=== PATIENT | male | born 1970 | race Caucasian/White ===

== ENCOUNTER 2022-03-28 13:46 | Observation (INO) | payer SELFPAY ==
[~2022-03-28] VITALS: Ht 190.5 cm; Wt 102.1 kg
[2022-03-28 14:31] LABS: BASOPHILS ABSOLUTE AUTO 0.04 K/mm3 (0.00-0.23); BASOPHILS PERCENT AUTO 1 % (0-2); EOSINOPHILS ABSOLUTE AUTO 0.07 K/mm3 (0.00-0.68); EOSINOPHILS PERCENT AUTO 1 % (0-6); Hematocrit 44.7 % (37.0-53.0); Hemoglobin 15.3 g/dL (13.5-17.5); IMMATURE GRAN ABSOLUTE AUTO 0.02 K/mm3 (0.00-0.10); IMMATURE GRAN PERCENT AUTO 0 % (0-1); LYMPHOCYTES ABSOLUTE AUTO 1.05 K/mm3 (0.84-5.20); LYMPHOCYTES PERCENT AUTO 12 % (21-46); MONOCYTES ABSOLUTE AUTO 0.47 K/mm3 (0.16-1.47); MONOCYTES PERCENT AUTO 6 % (4-13); Mean Corpuscular HGB 29.8 pg (26.0-34.0); Mean Corpuscular HGB Conc 34.2 g/dL (31.5-36.5); Mean Corpuscular Volume 87 fL (80-100); Mean Platelet Volume 9.4 fL (9.1-12.4); NEUTROPHILS ABSOLUTE AUTO 6.84 K/mm3 (1.96-9.15); NEUTROPHILS PERCENT AUTO 81 % (41-73); Platelet Count 291 K/mm3 (150-400); RDW Coefficient Variation 11.9 % (11.7-14.2); RDW Standard Deviation 38.4 fL (35.1-46.3); Red Blood Cell Count 5.13 M/mm3 (4.30-5.90); White Blood Cell Count 8.49 K/mm3 (4.00-11.30)
[2022-03-28 14:48] LABS: Albumin, Blood 3.7 g/dL (3.4-5.0); Bun/Creatinine Ratio 15.4 (12.0-20.0); Calcium, Blood 8.7 mg/dL (8.5-10.1); Creatinine, Blood 0.97 mg/dL (0.60-1.20); Globulin, Blood 3.8 g/dL (2.2-4.0); Potassium, Blood 3.7 mmol/L (3.5-5.5); Total Protein, Blood 7.5 g/dL (6.4-8.2)
--- NOTE | 2022-03-28 19:22 | NUR ---
SHIFT SUMMARY PTN TRANSFER FROM ER AT 1830 WITH C/O CHEST PAIN X2 DAYS TO L UPPER SHOULDER AND L SIDE. ONLY ONE OTHER EPISODE A WEEK OR SO AGO OF SAME. CHEST WITH ONLY A LITTLE DISCOMFORT AT THIS TIME. NO SRESS, NO SOB, NO OTHER SYMPTOMS NOTED. PTN ADMITTED FOR OBSERVATION WITH ELEVATED TROPONIN LEVELS.
--- NOTE | 2022-03-29 04:16 | NUR ---
SHIFT SUMMARY: PT A&OX4. ABLE TO MAKES NEEDS KNOWN. INDEPENDENT IN ROOM. NO COMPLAINTS OF SOB OR CHEST PAIN DURING THIS SHIFT. VSS. NPO AT IN FOR STRESS TEST IN A.M.
[2022-03-29 05:51] LABS: BASOPHILS ABSOLUTE AUTO 0.07 K/mm3 (0.00-0.23); BASOPHILS PERCENT AUTO 1 % (0-2); EOSINOPHILS ABSOLUTE AUTO 0.29 K/mm3 (0.00-0.68); EOSINOPHILS PERCENT AUTO 3 % (0-6); Hematocrit 44.9 % (37.0-53.0); Hemoglobin 15.5 g/dL (13.5-17.5); IMMATURE GRAN ABSOLUTE AUTO 0.02 K/mm3 (0.00-0.10); IMMATURE GRAN PERCENT AUTO 0 % (0-1); LYMPHOCYTES ABSOLUTE AUTO 2.26 K/mm3 (0.84-5.20); LYMPHOCYTES PERCENT AUTO 25 % (21-46); MONOCYTES ABSOLUTE AUTO 0.77 K/mm3 (0.16-1.47); MONOCYTES PERCENT AUTO 9 % (4-13); Mean Corpuscular HGB 29.9 pg (26.0-34.0); Mean Corpuscular HGB Conc 34.5 g/dL (31.5-36.5); Mean Corpuscular Volume 87 fL (80-100); Mean Platelet Volume 9.6 fL (9.1-12.4); NEUTROPHILS ABSOLUTE AUTO 5.64 K/mm3 (1.96-9.15); NEUTROPHILS PERCENT AUTO 62 % (41-73); Platelet Count 290 K/mm3 (150-400); RDW Coefficient Variation 11.9 % (11.7-14.2); RDW Standard Deviation 38.1 fL (35.1-46.3); Red Blood Cell Count 5.19 M/mm3 (4.30-5.90); White Blood Cell Count 9.05 K/mm3 (4.00-11.30)
[2022-03-29 06:20] LABS: Anion Gap 7 mmol/L (6-16); Blood Urea Nitrogen 20 mg/dL (8-24); CHOL/HDL RATIO 4.6; CO2, Blood 27 mmol/L (21-32); Calcium, Blood 8.9 mg/dL (8.5-10.1); Chloride, Blood 105 mmol/L (98-108); Cholesterol 212 mg/dL (50-200); Creatinine, Blood 1.05 mg/dL (0.60-1.20); Glomerular Filtration Rate 85 (60-); Glucose, Blood 80 mg/dL (70-99); HDL Cholesterol 46 mg/dL (>39); LDL/HDL RATIO 3.3; Low Density Lipoprotein Chol 151 mg/dL (0-110); Magnesium, Blood 2.5 mg/dL (1.6-2.4); Potassium, Blood 3.7 mmol/L (3.5-5.5); Sodium, Blood 139 mmol/L (136-145); Triglycerides 75 mg/dL (30-160); Very Low Density Lipoprot Chol 15 mg/dL (6-32)
[2022-03-29] MEDS ORDERED: NITR.4SL SL (14:31)
--- NOTE | 2022-03-29 15:49 | NUR ---
SHIFT SUMMARY PTN STAYED NPO AFTER MIDNIGHT IN ANTICIPATION OF STRESS TEST TODAY. THAT WAS COMPLETED AND MD ORDERS FOR D/C EARLY AFTERNOON POST RESULTS. D/C PAPERWORK WAS REVIEWED WITH THE PTN, TO INCLUDE RECOMMENDATION TO ESTABLISH PCP. INFORMATION WAS GIVEN TO [employer]. MEDICATION WAS FAXED INTO PTN PHARMACY. ALL QUESTIONS WERE ANSWERED. PTN WAS ESCORTED VIA WC TO HOSPITAL EXIT BY FAITH WRIGHT. PTN FATHER PRESENT.
== END 2022-03-29 15:15 | disposition home or self-care (01) ==
LOC: ER 13:46 → MEDS 13:47
PROVIDERS: Emergency Medicine; ADMIT Student in an Organized Health Care Education/Training Program
DX: R07.9 Chest pain, unspecified (principal); R77.8 Other specified abnormalities of plasma proteins
CPT/HCPCS: 36415; 78452; 80048; 80053; 80061; 83735; 83880; 84443; 84484; 85025; 93005; 93010; 93017; A9270; A9500; J0706; J2785

== ENCOUNTER → 2022-03-28 | Outpatient (CLI) | payer MEDICAID ==
[~2022-03-28] MED LIST: NITR.4SL SL
== END | disposition home or self-care (01) ==
DX: R07.89 Other chest pain (principal)

== ENCOUNTER 2022-04-14 08:34 | Day surgery (SDC) | payer OTHER ==
--- NOTE | 2022-04-14 09:49 | NUR ---
PT IN IMAGING FOR CTA PER DR DONG, VS STABLE, HR 50'S SINUS RAMESH, 20G IV STARTED R AC, CTA COMPLETED, VS STABLE, NO COMPLAINTS, WALKED PT DOWN TO HC FOR THE [address] DONG, IV DC'D INTACT
== END 2022-04-14 22:59 | disposition home or self-care (01) ==
LOC: MHTC 08:34 → CT 08:34
DX: I25.10 Atherosclerotic heart disease of native coronary artery without angina pectoris (principal); R42 Dizziness and giddiness
CPT/HCPCS: 75574; 93242; Q9967

== ENCOUNTER 2022-04-18 12:24 | Inpatient (IN) | payer OTHER ==
[~2022-04-18] VITALS: Ht 190.5 cm; Wt 98.6 kg
[2022-04-18 13:35] LABS: BASOPHILS ABSOLUTE AUTO 0.05 K/mm3 (0.00-0.23); BASOPHILS PERCENT AUTO 1 % (0-2); EOSINOPHILS ABSOLUTE AUTO 0.15 K/mm3 (0.00-0.68); EOSINOPHILS PERCENT AUTO 2 % (0-6); Hematocrit 48.5 % (37.0-53.0); Hemoglobin 16.6 g/dL (13.5-17.5); IMMATURE GRAN ABSOLUTE AUTO 0.03 K/mm3 (0.00-0.10); IMMATURE GRAN PERCENT AUTO 0 % (0-1); LYMPHOCYTES ABSOLUTE AUTO 1.14 K/mm3 (0.84-5.20); LYMPHOCYTES PERCENT AUTO 14 % (21-46); MONOCYTES ABSOLUTE AUTO 0.45 K/mm3 (0.16-1.47); MONOCYTES PERCENT AUTO 5 % (4-13); Mean Corpuscular HGB 29.8 pg (26.0-34.0); Mean Corpuscular HGB Conc 34.2 g/dL (31.5-36.5); Mean Corpuscular Volume 87 fL (80-100); NEUTROPHILS ABSOLUTE AUTO 6.65 K/mm3 (1.96-9.15); NEUTROPHILS PERCENT AUTO 78 % (41-73); Platelet Count 293 K/mm3 (150-400); Red Blood Cell Count 5.57 M/mm3 (4.30-5.90); White Blood Cell Count 8.47 K/mm3 (4.00-11.30)
[2022-04-18 13:44] LABS: Albumin, Blood 4.2 g/dL (3.4-5.0); Bun/Creatinine Ratio 13.8 (12.0-20.0); Calcium, Blood 9.2 mg/dL (8.5-10.1); Creatinine, Blood 1.09 mg/dL (0.60-1.20); Potassium, Blood 3.6 mmol/L (3.5-5.5); Total Protein, Blood 8.2 g/dL (6.4-8.2)
[2022-04-18] MEDS ORDERED: PLAVIX75 MG PO (16:13)
[2022-04-18] MEDS ORDERED: NITROGLYCERIN0.4 M3 SL (16:13)
[2022-04-18] MEDS ORDERED: ASPI81CH PO (16:14)
--- NOTE | 2022-04-18 18:45 | NUR ---
PATIENT ARRIVED FROM ED AT 1830 VIA W/C. A&O X 4, INDEPENDENT. STATES CHEST PAIN IS "MANAGEABLE", SAYS HE CAN BARELY FEEL IT. DR. MULLINS AT BEDSIDE.
[2022-04-18 19:35] LABS: Anti-Xa UFH, PHA Monitoring <0.10 IU/mL; International Normalized Ratio 1.07; Prothrombin Time Results 11.2 Sec (9.7-11.5)
[2022-04-18 22:05] LABS: Influenza A, PCR NEGATIVE (NEGATIVE); Influenza B, PCR NEGATIVE (NEGATIVE); Resp Syncytial Virus, PCR NEGATIVE (NEGATIVE); SARS-Cov-2 (COVID-19) PCR, MMC NEGATIVE (NEGATIVE)
--- NOTE | 2022-04-18 22:31 | NUR ---
PT ARRIVED TO FLOOR RIGHT BEFORE SHIFT CHANGE, 1829. THIS RN DID ADMISSION. ADMISSION COMPLETE, ASSESSMENT COMPLETE. PLACED ON TELE, SINUS RAMESH HR 65-45, WILL GIVE LOPRESSOR HR ALLOWS. HEPARIN GTT STARTED PER PHARMACY. PT DENIES ANY CURRENT CP, EDUCATED PT TO CALL IF ANY CP ARISES. DENIES SOB/DIZZINESS. SKIN INTACT. EDUCATED ON PLAN OF CARE. PT NPO FOR ANGIOGRAM AT 8AM, PT AWARE. CALL LIGHT IN REACH
[2022-04-19 02:06] LABS: Anion Gap 5 mmol/L (6-16); Blood Urea Nitrogen 16 mg/dL (8-24); Bun/Creatinine Ratio 14.2 (12.0-20.0); CHOL/HDL RATIO 2.3; CO2, Blood 30 mmol/L (21-32); Calcium, Blood 8.5 mg/dL (8.5-10.1); Chloride, Blood 107 mmol/L (98-108); Cholesterol 84 mg/dL (50-200); Creatinine, Blood 1.13 mg/dL (0.60-1.20); Glomerular Filtration Rate 78 (60-); Glucose, Blood 88 mg/dL (70-99); HDL Cholesterol 36 mg/dL (>39); LDL/HDL RATIO 1.1; Low Density Lipoprotein Chol 39 mg/dL (0-110); Potassium, Blood 3.7 mmol/L (3.5-5.5); Sodium, Blood 142 mmol/L (136-145); Triglycerides 44 mg/dL (30-160); Very Low Density Lipoprot Chol 8 mg/dL (6-32)
--- NOTE | 2022-04-19 04:29 | NUR ---
SHIFT SUMMARY NO CHANGES IN PT CONDITION SINCE BEGINING OF SHIFT AT ADMISSION. DENIES ANY CURRENT CP/SOB. HEPARIN GTT CONTINUES. INDEPENDENT IN ROOM. NPO FOR ANGIOGRAM. CALL LIGHT IN REACH, ABLE TO MAKE NEEDS KNOWN.
--- NOTE | 2022-04-19 07:40 | NUR ---
PATIENT OFF UNIT TO PSYCHODRAMATIST VIA W/C. PERSONAL BELONGINGS BAGGED AND PLACED AT ACC DESK.
[2022-04-19 15:01] LABS: BASOPHILS ABSOLUTE AUTO 0.05 K/mm3 (0.00-0.23); BASOPHILS PERCENT AUTO 1 % (0-2); EOSINOPHILS ABSOLUTE AUTO 0.26 K/mm3 (0.00-0.68); EOSINOPHILS PERCENT AUTO 3 % (0-6); Hematocrit 38.3 % (37.0-53.0); Hemoglobin 13.2 g/dL (13.5-17.5); IMMATURE GRAN ABSOLUTE AUTO 0.02 K/mm3 (0.00-0.10); IMMATURE GRAN PERCENT AUTO 0 % (0-1); LYMPHOCYTES ABSOLUTE AUTO 1.59 K/mm3 (0.84-5.20); LYMPHOCYTES PERCENT AUTO 20 % (21-46); MONOCYTES ABSOLUTE AUTO 0.51 K/mm3 (0.16-1.47); MONOCYTES PERCENT AUTO 6 % (4-13); Mean Corpuscular HGB 30.4 pg (26.0-34.0); Mean Corpuscular HGB Conc 34.5 g/dL (31.5-36.5); Mean Corpuscular Volume 88 fL (80-100); Mean Platelet Volume 10.2 fL (9.1-12.4); NEUTROPHILS ABSOLUTE AUTO 5.61 K/mm3 (1.96-9.15); NEUTROPHILS PERCENT AUTO 70 % (41-73); Platelet Count 237 K/mm3 (150-400); RDW Standard Deviation 39.1 fL (35.1-46.3); Red Blood Cell Count 4.34 M/mm3 (4.30-5.90); White Blood Cell Count 8.04 K/mm3 (4.00-11.30)
--- NOTE | 2022-04-19 18:04 | NUR ---
SHIFT SUMMARY: PATIENT CAME TO PCU 02 AROUND 1030 AM FROM CLINICAL SAFETY MANAGER, POST ANGIO. POST ANGIO VITALS COMPLETED. ALERT AND ORIENTED X4. NEURO WNL. ON ROOM AIR. TELE SHOWING SINUS RAMESH WITH HR 40-50'S. BP STABLE. PPP. DENIES CHEST PAIN/PRESSURE/PALPITATIONS. RIGHT RADIAL SITE POST ANGIO. UPON ARRIVAL FROM CLINICAL SAFETY MANAGER, PROXIMAL HEMATOMA FORMING AT TR BAND SITE. CLINICAL SAFETY MANAGER STAFF HELD PRESSURE AND REPOSITIONED TR BAND PLACEMENT. HEMATOMA REMAINS UNCHANGED, BRUISE STARTING TO FORM. VERY SMALL OOZE FROM PUNCTURE SITE THAT HAS ALSO REMAINED UNCHANGED. PEN DRAWN TO OUTLINE HEMATOMA. 1ML REMOVED PER TR BAND ORDERS 3 HOURS POST PLACEMENT. SEE TR BAND ORDERS FOR REMOVAL OF TR BAND STARTING AT 2115 THIS EVENING. POST ANGIO EKG DONE AND IN CHART. ADDITIONAL EKG TO BE DONE AT 0630 IN AM. NPO AT MIDNIGHT FOR ANGIO IN MORNING. PATIENT ATE LUNCH AND DINNER. HEPARIN, AGGRASTAT AND NS INFUSING PER EMAR. DR. MULLINS IN TO ASSESS SITE AROUND 1100. PARENTS AT BEDSIDE AND UPDATED. PATIENT AND FAMILY ORIENTED TO PCU. DISCUSSED SAFETY AND CALLING TO USE RESTROOM TO ASSIST WITH CORDS AND TUBING. UP TO BATHROOM SBA. DENIES OVERALL PAINS. WILL CONTINUE TO MONITOR AND REPORT OFF TO ONCOMING RN.
[2022-04-20 05:11] LABS: BASOPHILS ABSOLUTE AUTO 0.05 K/mm3 (0.00-0.23); BASOPHILS PERCENT AUTO 1 % (0-2); EOSINOPHILS PERCENT AUTO 4 % (0-6); Hematocrit 36.8 % (37.0-53.0); Hemoglobin 12.4 g/dL (13.5-17.5); IMMATURE GRAN ABSOLUTE AUTO 0.02 K/mm3 (0.00-0.10); IMMATURE GRAN PERCENT AUTO 0 % (0-1); LYMPHOCYTES ABSOLUTE AUTO 1.58 K/mm3 (0.84-5.20); LYMPHOCYTES PERCENT AUTO 22 % (21-46); MONOCYTES ABSOLUTE AUTO 0.52 K/mm3 (0.16-1.47); MONOCYTES PERCENT AUTO 7 % (4-13); Mean Corpuscular HGB Conc 33.7 g/dL (31.5-36.5); Mean Corpuscular Volume 89 fL (80-100); NEUTROPHILS ABSOLUTE AUTO 4.76 K/mm3 (1.96-9.15); NEUTROPHILS PERCENT AUTO 66 % (41-73); Platelet Count 225 K/mm3 (150-400); RDW Standard Deviation 38.9 fL (35.1-46.3); Red Blood Cell Count 4.14 M/mm3 (4.30-5.90); White Blood Cell Count 7.23 K/mm3 (4.00-11.30)
[2022-04-20 05:28] LABS: Albumin, Blood 2.9 g/dL (3.4-5.0); Anion Gap 4 mmol/L (6-16); Blood Urea Nitrogen 15 mg/dL (8-24); Bun/Creatinine Ratio 14.3 (12.0-20.0); CO2, Blood 27 mmol/L (21-32); Calcium, Blood 7.9 mg/dL (8.5-10.1); Chloride, Blood 113 mmol/L (98-108); Creatinine, Blood 1.05 mg/dL (0.60-1.20); Glomerular Filtration Rate 85 (60-); Glucose, Blood 80 mg/dL (70-99); Phosphorus, Blood 2.7 mg/dL (2.5-4.9); Potassium, Blood 3.8 mmol/L (3.5-5.5); Sodium, Blood 144 mmol/L (136-145)
--- NOTE | 2022-04-20 05:29 | NUR ---
END OF SHIFT REPORT DRIPS: HEPARIN 9 UNITS/KG/HR. AGGRASTAT 0.15 MCG/KG/MIN. NORMAL SALINE 125 ML/HR NEURO: WNL. PT DENIES NUMBNESS/TINGLING, HEADACHE OR VISION CHANGES. FULL SENSATION IN ALL FOUR EXTREMITIES. CARDIAC: SB. HR 40s-50s. BP AVERAGING 110s/60s. PT COMPLAINS OF CONSTANT DULL PRESSSURE IN CHEST OVERNIGHT RATED 2-3/10. PT REFUSED MEDICATIONS TO MANAGE, SAID IT WAS NOT BAD ENOUGH TO WARRANT. RESPIRATORY: WNL. RA. CLEAR BREATH SOUNDS APPRECIATED BILATERALLY. PT DENIES SOB/DYSPNEA. GI/: CONTINENT OF BOWEL AND BLADDER. NO BOWEL MOVEMENT OVERNIGHT. NORMOACTIVE BOWEL SOUNDS APPRECIATED AND ABDOMEN NONTENDER. PUTTING OUT ADEQUATE AMOUNTS OF CLEAR YELLOW URINE. MUSCULOSKELETAL: FULL STRENGTH. UP TO BATHROOM WITH VERBAL CUES ONLY. INTEGUMENTARY: RIGHT RADIAL ANGIO SITE. TR BAND REMOVED AROUND 0100. SCANT OOZING UNDER TEGADERM. REAPPLIED ARMBOARD TO PREVENT WRIST FROM FLEXING AND EXTENDING. SMALL HEMATOMA UNCHANGED FROM START OF SHIFT AND SITE IS SOFT. PLAN: STENT PLACEMENT TODAY
--- NOTE | 2022-04-20 08:08 | NUR ---
PATIENT TO SOLAR ENERGY SALES SPECIALIST AT THIS TIME
[2022-04-20] MEDS ORDERED: ATOR80 PO (17:46)
[2022-04-20] MEDS ORDERED: TICA90TA PO (17:46)
--- NOTE | 2022-04-20 18:50 | NUR ---
DISCHARGE NO ACUTE CHANGES. TR BANDS REMOVED AT 1520. BILATERAL RADIAL SITES WNL. DISCHARGE WNL. PATIENT AND PARENTS EDUCATED ON MEDICATIONS, FOLLOW UP APPOINTMENTS, RADIAL SITE CARE, POST ANGIO PRECAUTIONS, STENT CARD, CARDIAC REHAB, [facility] PRESCRIPTIONS FAXED AND WHEN TO CALL DOCTOR. FAMILY EXPRESSED UNDERSTANDING AND ABLE TO TEACH BACK. [place] COUPON CARD PROVIDED. STENT CARD SENT HOME ALONG WITH ALL DISCHARGE INSTRUCTIONS AND EDUCATION. IV'S REMOVED WNL. VITAL SIGNS ALL REMAIN STABLE. PATIENT LEFT UNIT VIA WHEELCHAIR WITH ALL PERSONAL BELONGINGS
== END 2022-04-20 18:45 | disposition home or self-care (01) | DRG 271 ==
LOC: ER 12:24 → MEDS 12:25 → PCU 04-19 10:23
PROVIDERS: Emergency Medicine; Internal Medicine Cardiovascular Disease; Student in an Organized Health Care Education/Training Program; ADMIT Family Medicine
PROC: X2CY3T7 Extirpation of Matter from Great Vessel using Computer-aided Mechanical Aspiration, Percutaneous Approach, New Technology Group 7 (ICD-10-PCS; 2022-04-19)
PROC: 4A023N7 Measurement of Cardiac Sampling and Pressure, Left Heart, Percutaneous Approach (ICD-10-PCS; 2022-04-19)
PROC: B211YZZ Fluoroscopy of Multiple Coronary Arteries using Other Contrast (ICD-10-PCS; 2022-04-19)
PROC: B240ZZ3 Ultrasonography of Single Coronary Artery, Intravascular (ICD-10-PCS; 2022-04-19)
PROC: B215YZZ Fluoroscopy of Left Heart using Other Contrast (ICD-10-PCS; 2022-04-19)
PROC: 027036Z Dilation of Coronary Artery, One Artery with Three Drug-eluting Intraluminal Devices, Percutaneous Approach (ICD-10-PCS; principal; 2022-04-20)
DX: I25.118 Atherosclerotic heart disease of native coronary artery with other forms of angina pectoris (principal); I23.7 Postinfarction angina; I24.9 Acute ischemic heart disease, unspecified; E78.5 Hyperlipidemia, unspecified; R00.1 Bradycardia, unspecified; F17.220 Nicotine dependence, chewing tobacco, uncomplicated; I25.2 Old myocardial infarction; Z20.822 Contact with and (suspected) exposure to COVID-19; Z79.899 Other long term (current) drug therapy; Z79.82 Long term (current) use of aspirin
CPT/HCPCS: 0241U; 36415; 71046; 76937; 80048; 80053; 80061; 80069; 83735; 84484; 85025; 85347; 85520; 85610; 85730; 92920; 92973; 93005; 93010; 93458; 96374; 96376; 99152; 99153; 99285-25; A9270; C1725; C1757; C1769; C1874; C1887; C1894; C9600; G0378; J0461; J1644; J2250; J3010; J3246; J7030; J7040; J7050; Q9967

== ENCOUNTER 2023-05-26 19:58 | Emergency (ER) | payer OTHER ==
[~2023-05-26] VITALS: Ht 190.5 cm; Wt 97.5 kg
[~2023-05-26 19:58] MED LIST changes: +ASPI81CH PO; +ATOR80 PO; +NITROGLYCERIN0.4 M3 SL; +PLAVIX75 MG PO; +TICA90TA PO
[2023-05-26 20:36] LABS: BASOPHILS ABSOLUTE AUTO 0.06 K/mm3 (0.00-0.23); BASOPHILS PERCENT AUTO 1 % (0-2); EOSINOPHILS ABSOLUTE AUTO 0.13 K/mm3 (0.00-0.68); EOSINOPHILS PERCENT AUTO 2 % (0-6); Hematocrit 45.2 % (37.0-53.0); Hemoglobin 15.6 g/dL (13.5-17.5); IMMATURE GRAN ABSOLUTE AUTO 0.01 K/mm3 (0.00-0.10); IMMATURE GRAN PERCENT AUTO 0 % (0-1); LYMPHOCYTES PERCENT AUTO 18 % (21-46); MONOCYTES ABSOLUTE AUTO 0.54 K/mm3 (0.16-1.47); MONOCYTES PERCENT AUTO 7 % (4-13); Mean Corpuscular HGB 30.6 pg (26.0-34.0); Mean Corpuscular HGB Conc 34.5 g/dL (31.5-36.5); Mean Corpuscular Volume 89 fL (80-100); Mean Platelet Volume 9.7 fL (9.1-12.4); NEUTROPHILS ABSOLUTE AUTO 5.93 K/mm3 (1.96-9.15); NEUTROPHILS PERCENT AUTO 73 % (41-73); Platelet Count 240 K/mm3 (150-400); RDW Coefficient Variation 12.1 % (11.7-14.2); RDW Standard Deviation 39.5 fL (35.1-46.3); White Blood Cell Count 8.17 K/mm3 (4.00-11.30)
[2023-05-26 20:56] LABS: Albumin, Blood 3.8 g/dL (3.4-5.0); Bilirubin, Total 0.7 mg/dL (0.1-1.0); Bun/Creatinine Ratio 20.6 (12.0-20.0); Calcium, Blood 8.9 mg/dL (8.5-10.1); Creatinine, Blood 0.78 mg/dL (0.60-1.20); Globulin, Blood 3.8 g/dL (2.2-4.0); Potassium, Blood 3.9 mmol/L (3.5-5.5); Total Protein, Blood 7.6 g/dL (6.4-8.2)
[2023-05-26 23:00] VITALS: BP 111/79
== END 2023-05-26 23:15 | disposition home or self-care (01) ==
LOC: ER 19:58
PROVIDERS: Student in an Organized Health Care Education/Training Program
DX: R07.89 Other chest pain (principal); I25.2 Old myocardial infarction; Z79.82 Long term (current) use of aspirin; Z79.899 Other long term (current) drug therapy
CPT/HCPCS: 71046; 80053; 84484; 85025; 93005; 93010; 99285-25

== ENCOUNTER 2023-06-01 09:42 | Emergency (ER) | payer OTHER ==
[~2023-06-01] VITALS: Ht 190.5 cm; Wt 99.8 kg
[2023-06-01 10:24] LABS: BASOPHILS ABSOLUTE AUTO 0.04 K/mm3 (0.00-0.23); BASOPHILS PERCENT AUTO 1 % (0-2); EOSINOPHILS PERCENT AUTO 2 % (0-6); Hematocrit 44.6 % (37.0-53.0); Hemoglobin 15.5 g/dL (13.5-17.5); IMMATURE GRAN ABSOLUTE AUTO 0.02 K/mm3 (0.00-0.10); IMMATURE GRAN PERCENT AUTO 0 % (0-1); LYMPHOCYTES ABSOLUTE AUTO 0.99 K/mm3 (0.84-5.20); LYMPHOCYTES PERCENT AUTO 15 % (21-46); MONOCYTES ABSOLUTE AUTO 0.45 K/mm3 (0.16-1.47); MONOCYTES PERCENT AUTO 7 % (4-13); Mean Corpuscular HGB 30.8 pg (26.0-34.0); Mean Corpuscular HGB Conc 34.8 g/dL (31.5-36.5); Mean Corpuscular Volume 89 fL (80-100); Mean Platelet Volume 9.3 fL (9.1-12.4); NEUTROPHILS ABSOLUTE AUTO 5.23 K/mm3 (1.96-9.15); NEUTROPHILS PERCENT AUTO 77 % (41-73); Platelet Count 249 K/mm3 (150-400); RDW Coefficient Variation 11.9 % (11.7-14.2); RDW Standard Deviation 38.5 fL (35.1-46.3); Red Blood Cell Count 5.04 M/mm3 (4.30-5.90); White Blood Cell Count 6.83 K/mm3 (4.00-11.30)
[2023-06-01 11:03] LABS: Albumin, Blood 3.7 g/dL (3.4-5.0); Bilirubin, Total 1.4 mg/dL (0.1-1.0); Bun/Creatinine Ratio 17.8 (12.0-20.0); Calcium, Blood 8.8 mg/dL (8.5-10.1); Creatinine, Blood 0.96 mg/dL (0.60-1.20); Globulin, Blood 3.7 g/dL (2.2-4.0); Potassium, Blood 3.5 mmol/L (3.5-5.5); Total Protein, Blood 7.4 g/dL (6.4-8.2)
[2023-06-01 12:45] VITALS: BP 128/70
== END 2023-06-01 13:33 | disposition home or self-care (01) ==
LOC: ER 09:42
PROVIDERS: Physician Assistant
DX: R07.9 Chest pain, unspecified (principal); R00.1 Bradycardia, unspecified; I25.2 Old myocardial infarction; Z79.899 Other long term (current) drug therapy
CPT/HCPCS: 71046; 80053; 83690; 84484; 85025; 93005; 93010; 99285-25

== ENCOUNTER 2023-06-26 06:53 | Day surgery (SDC) | payer OTHER ==
[2023-06-26] VITALS (10 sets, daily range): BP systolic 99–139; BP diastolic 63–120
[~2023-06-26] VITALS: Ht 185.4 cm; Wt 93.0 kg
[~2023-06-26 06:53] MED LIST changes: +CLOP75 PO
[2023-06-26] MEDS ORDERED: Heparin Sodium 1000 Units/ML 10ML MDV ONE (07:49)
[2023-06-26] MEDS ORDERED: NiCARdipine HCL 1,000 MCG/5 ML SYR ONE (07:49)
[2023-06-26] MEDS ORDERED: NS 250 ML IV ONE (07:49)
[2023-06-26] MEDS ORDERED: NS 1,000 ML IV ONE ×2 (07:49→08:16)
[2023-06-26] MEDS ORDERED: Nitroglycerin 2 MG/20 ML BTL ONE (07:49)
[2023-06-26] MEDS ORDERED: FentaNYL Citrate 50 MCG/ML 2 ML Injection ONE (08:15)
[2023-06-26] MEDS ORDERED: Midazolam HCl 1MG / ML 2ML Vial ONE (08:15)
--- NOTE | 2023-06-26 09:00 | NUR ---
PATIENT ARRIVED TO RECOVERY ROOM SITTING UPRIGHT IN RECLINER. PATIENT CONVERSING APPROPRIATELY. R RADIAL TR BAND FULLY INFALTED. SITE C/D/I SOFT/NONTENDER, NO EVIDENCE OF BLEEDING. PATIENT DENYING ANY CP. VSS ON RA.
--- NOTE | 2023-06-26 10:00 | NUR ---
PATIENT SITTING UPRIGHT IN RECLINER, TOLERATING PO INTAKE WELL. INITIAL 2 CC OF AIR REMOVED FROM R RADIAL TR BAND. SITE C/D/I SOFT/NONTENDER, NO EVIDENCE OF BLEEDING. VSS ON RA.
--- NOTE | 2023-06-26 11:06 | NUR ---
ALL AIR REMVOED FROM R RADIAL TR BAND. SITE C/D/I SOFT/NONTENDER, NO EVIDENCE OF BLEEDING. PATIENT DENYING ANY CP. VSS ON RA
--- NOTE | 2023-06-26 12:06 | NUR ---
PATIENT DISCHARGE INSTRUCTIONS REVIEWED WITH PATIENT AND MOTHER. ALL QUESTIONS WERE ANSWERED. FOLLOW UP APPOINTMENT SCHEDULED. R RADIAL TR BAND REMOVED, CLOTH DOT AND ARM BOARD IN PLACE. PIV REMOVED WITHOUT DIFFICULTY, CATHETER INTACT. PATIENT WHEELED TO HOSPITAL ENTRANCE AND MOTHER ABLE TO PROVIDE TRANSPORTATION HOME
== END 2023-06-26 12:05 | disposition home or self-care (01) ==
LOC: MHTC 06:53
DX: I25.118 Atherosclerotic heart disease of native coronary artery with other forms of angina pectoris (principal); E78.5 Hyperlipidemia, unspecified
CPT/HCPCS: 76937; 93454; 99152; A9270; C1769; C1887; C1894; J1644; J2250; J3010; J7030; J7050; Q9967

== ENCOUNTER 2024-12-18 16:06 | Emergency (ER) | payer OTHER ==
[~2024-12-18] VITALS: Ht 190.5 cm; Wt 97.5 kg
[2024-12-18 16:47] LABS: BASOPHILS ABSOLUTE AUTO 0.03 K/mm3 (0.00-0.23); BASOPHILS PERCENT AUTO 0 % (0-2); EOSINOPHILS ABSOLUTE AUTO 0.10 K/mm3 (0.00-0.68); EOSINOPHILS PERCENT AUTO 1 % (0-6); Hematocrit 41.5 % (37.0-53.0); Hemoglobin 14.4 g/dL (13.5-17.5); IMMATURE GRAN ABSOLUTE AUTO 0.01 K/mm3 (0.00-0.10); IMMATURE GRAN PERCENT AUTO 0 % (0-1); LYMPHOCYTES ABSOLUTE AUTO 1.52 K/mm3 (0.84-5.20); LYMPHOCYTES PERCENT AUTO 19 % (21-46); MONOCYTES ABSOLUTE AUTO 0.55 K/mm3 (0.16-1.47); MONOCYTES PERCENT AUTO 7 % (4-13); Mean Corpuscular HGB Conc 34.7 g/dL (31.5-36.5); Mean Corpuscular Volume 90 fL (80-100); NEUTROPHILS ABSOLUTE AUTO 5.66 K/mm3 (1.96-9.15); NEUTROPHILS PERCENT AUTO 72 % (41-73); NRBC ABSOLUTE 0.00 K/mm3 (0.00-0.02); NRBC Auto 0.0 /100 WBC (0.0-0.2); Platelet Count 243 K/mm3 (150-400); RDW Coefficient Variation 12.1 % (11.7-14.2); RDW Standard Deviation 39.6 fL (35.1-46.3)
[2024-12-18 17:03] LABS: Alanine Aminotransfer (ALT/SGP 41.0 U/L (12-78); Albumin, Blood 3.7 g/dL (3.4-5.0); Albumin/Globulin Ratio 1.1 (0.8-1.8); Anion Gap 4.0 mmol/L (3-11); Aspartate Aminotrans (AST/SGOT 30.0 U/L (12-37); Bilirubin, Total 1.5 mg/dL (0.1-1.0); Blood Urea Nitrogen 15.0 mg/dL (8-24); CO2, Blood 27.0 mmol/L (21-32); Calcium, Blood 8.4 mg/dL (8.5-10.1); Chloride, Blood 108.0 mmol/L (98-108); Creatinine, Blood 0.84 mg/dL (0.60-1.20); Globulin, Blood 3.5 g/dL (2.2-4.0); Glucose, Blood 87.0 mg/dL (70-99); Potassium, Blood 3.1 mmol/L (3.5-5.5); Sodium, Blood 136.0 mmol/L (136-145); Total Protein, Blood 7.2 g/dL (6.4-8.2)
[2024-12-18 18:42] VITALS: BP 132/79
== END 2024-12-18 18:42 | disposition home or self-care (01) ==
LOC: ER 16:06
PROVIDERS: Student in an Organized Health Care Education/Training Program
DX: R07.89 Other chest pain (principal); I25.2 Old myocardial infarction; I25.10 Atherosclerotic heart disease of native coronary artery without angina pectoris; E78.5 Hyperlipidemia, unspecified; Z95.5 Presence of coronary angioplasty implant and graft; Z79.82 Long term (current) use of aspirin; Z79.02 Long term (current) use of antithrombotics/antiplatelets; Z79.899 Other long term (current) drug therapy
CPT/HCPCS: 71046; 80053; 84484; 85025; 93005; 93010; 99285-25